=== PATIENT | male | born 1960 | race Caucasian/White ===

== ENCOUNTER 2020-08-17 09:44 | Outpatient (REF) | payer OTHER, SELFPAY | END 2020-08-17 09:45 | disposition home or self-care (01) | LOC: HO.MANLR 09:44 | PROVIDERS: PCP Internal Medicine; Visit Provider Internal Medicine | DX: Z20.822 Contact with and (suspected) exposure to COVID-19 (principal) | CPT/HCPCS: 36415; U0003 ==

== ENCOUNTER 2020-11-01 07:36 | Outpatient (REF) | payer OTHER, SELFPAY ==
[2020-11-01 11:13] LABS: MANUAL DIFF FLAG NO
[2020-11-01 11:19] LABS: Basophils Percent Auto 0.7 % (0-2); Eosinophils Absolute Auto 0.1 X10*3/uL (0.0-0.4); Eosinophils Percent Auto 2.4 % (0-4); Hematocrit 45.1 % (42-52); Hemoglobin 15.1 g/dl (14.0-18.0); Imm Gran Abs Auto 0.02 X10*3/uL (0.00-0.03); Imm Gran Pct Auto 0.4 % (0.0-0.4); Lymphocytes Absolute Auto 1.2 X10*3/uL (1.2-4.9); Lymphocytes Percent Auto 25.7 % (20-40); Mean Corpuscular HGB Conc 33.5 g/dl (31.0-36.0); Mean Corpuscular Hemoglobin 31.8 pg (27.0-33.0); Mean Corpuscular Volume 94.9 fL (80-98); Mean Platelet Volume 10.6 fL (9.4-12.4); Monocytes Absolute Auto 0.5 X10*3/uL (0.1-1.2); Monocytes Percent Auto 11.1 % (2-11); Neutrophils Absolute Auto 2.7 X10*3/uL (2.0-8.3); Neutrophils Percent Auto 59.7 % (45-73); Platelet Count 253 X10*3/uL (160-400); Red Blood Count 4.75 X10*6/uL (4.60-5.80); Red Cell Distribution Width 12.3 % (11.0-16.0); White Blood Count 4.5 X10*3/uL (4.8-10.8)
[2020-11-01 12:11] LABS: Folate 7.8 ng/mL (> or = 4.0); Vitamin B12 298 pg/mL (200-900)
[2020-11-01 12:33] LABS: Alanine Aminotransferase 39 U/L (0-40); Albumin Level 4.1 g/dL (3.5-5.0); Alkaline Phosphatase 96 U/L (39-117); Anion Gap 15 (12-20); Aspartate Amino Transferase 28 U/L (5-37); Bilirubin Total 0.7 mg/dL (0.0-1.0); Blood Urea Nitrogen 14 mg/dL (9-16); Carbon Dioxide 25 mmol/L (22-29); Chloride 104 mmol/L (96-108); Cholesterol 236 mg/dL; Estimated Glomerular Filt Rate > 60; Glucose Fasting 96 mg/dL (60-99); HDL Cholesterol 52 mg/dL; LDL Cholesterol Calculated 153 mg/dl; Potassium 4.1 mmol/L (3.3-5.1); Sodium 140 mmol/L (135-145); Total Protein 6.7 g/dL (6.5-8.0); Triglycerides 158 mg/dL
[2020-11-01 12:56] LABS: Prostate Specific Antigen 1.15 ng/mL (<0.05-4.0); Vitamin D 25-OH Total 20.7 ng/mL (>30)
[2020-11-05 14:52] LABS: Testosterone, Total 264 ng/dL (250-1100)
== END 2020-11-01 07:37 | disposition home or self-care (01) ==
LOC: HO.MANLDS 07:36
PROVIDERS: PCP Internal Medicine; Visit Provider Internal Medicine
DX: Z00.00 Encounter for general adult medical examination without abnormal findings (principal); Z12.5 Encounter for screening for malignant neoplasm of prostate; E55.9 Vitamin D deficiency, unspecified
CPT/HCPCS: 36415; 80053; 80061; 82306; 82607; 82746; 84153; 84403; 85025

== ENCOUNTER 2022-01-17 07:47 | Outpatient (REF) | payer OTHER, SELFPAY ==
[2022-01-17 11:10] LABS: MANUAL DIFF FLAG NO
[2022-01-17 11:14] LABS: Basophils Percent Auto 0.9 % (0-2); Eosinophils Absolute Auto 0.1 X10*3/uL (0.0-0.4); Eosinophils Percent Auto 2.2 % (0-4); Hematocrit 41.7 % (42.0-52.0); Imm Gran Abs Auto 0.01 X10*3/uL (0.00-0.03); Imm Gran Pct Auto 0.2 % (0.0-0.4); Lymphocytes Absolute Auto 1.5 X10*3/uL (1.2-4.9); Lymphocytes Percent Auto 32.5 % (20-40); Mean Corpuscular HGB Conc 33.6 g/dl (31.0-36.0); Mean Corpuscular Hemoglobin 31.3 pg (27.0-33.0); Mean Corpuscular Volume 93.3 fL (80.0-98.0); Mean Platelet Volume 10.1 fL (9.4-12.4); Monocytes Absolute Auto 0.4 X10*3/uL (0.1-1.2); Monocytes Percent Auto 9.4 % (2-11); Neutrophils Absolute Auto 2.4 x10*3/uL (2.0-8.3); Neutrophils Percent Auto 54.8 % (45-73); Platelet Count 274 X10*3/uL (160-400); Red Blood Count 4.47 X10*6/uL (4.60-5.80); Red Cell Distribution Width 13.2 % (11.0-16.0); White Blood Count 4.5 X10*3/uL (4.8-10.8)
[2022-01-17 11:39] LABS: Alanine Aminotransferase 30 U/L (0-40); Albumin Level 4.2 g/dL (3.5-5.0); Alkaline Phosphatase 78 U/L (39-117); Anion Gap 13 (12-20); Aspartate Amino Transferase 22 U/L (5-37); Bilirubin Total 0.6 mg/dL (0.0-1.0); Blood Urea Nitrogen 12 mg/dL (9-16); Calcium 9.3 mg/dL (8.4-10.2); Carbon Dioxide 25 mmol/L (22-29); Chloride 107 mmol/L (96-108); Cholesterol 182 mg/dL; Estimated Glomerular Filt Rate > 60; Glucose Random 101 mg/dL (60-115); HDL Cholesterol 56 mg/dL; LDL Cholesterol Calculated 88 mg/dl; Potassium 4.4 mmol/L (3.3-5.1); Sodium 141 mmol/L (135-145); Total Protein 6.8 g/dL (6.5-8.0); Triglycerides 190 mg/dL
[2022-01-17 11:49] LABS: Prostate Specific Antigen 1.29 ng/mL (<0.05-4.0); Vitamin D 25-OH Total 18.9 ng/mL (>30)
[2022-01-22 14:02] LABS: Testosterone, Total 405 ng/dL (250-1100)
== END 2022-01-17 07:48 | disposition home or self-care (01) ==
LOC: HO.MANLDS 07:47
PROVIDERS: Visit Provider Internal Medicine
DX: Z00.00 Encounter for general adult medical examination without abnormal findings (principal); Z12.5 Encounter for screening for malignant neoplasm of prostate
CPT/HCPCS: 36415; 80053; 80061; 82306; 84153; 84403; 85025

== ENCOUNTER 2022-04-25 09:21 | Outpatient (REF) | payer OTHER, SELFPAY ==
[2022-04-25 11:04] LABS: MANUAL DIFF FLAG NO
[2022-04-25 11:42] LABS: Basophils Percent Auto 0.8 % (0-2); Eosinophils Absolute Auto 0.1 X10*3/uL (0.0-0.4); Eosinophils Percent Auto 1.7 % (0-4); Hematocrit 40.3 % (42.0-52.0); Hemoglobin 13.9 g/dl (14.0-18.0); Imm Gran Abs Auto 0.01 X10*3/uL (0.00-0.03); Imm Gran Pct Auto 0.3 % (0.0-0.4); Lymphocytes Percent Auto 28.6 % (20-40); Mean Corpuscular HGB Conc 34.5 g/dl (31.0-36.0); Mean Corpuscular Hemoglobin 31.8 pg (27.0-33.0); Mean Corpuscular Volume 92.2 fL (80.0-98.0); Mean Platelet Volume 9.6 fL (9.4-12.4); Monocytes Absolute Auto 0.3 X10*3/uL (0.1-1.2); Monocytes Percent Auto 9.4 % (2-11); Neutrophils Absolute Auto 2.1 x10*3/uL (2.0-8.3); Neutrophils Percent Auto 59.2 % (45-73); Platelet Count 249 X10*3/uL (160-400); Red Blood Count 4.37 X10*6/uL (4.60-5.80); Red Cell Distribution Width 12.5 % (11.0-16.0); White Blood Count 3.6 X10*3/uL (4.8-10.8)
[2022-04-25 13:34] LABS: Albumin Level 4.1 g/dL (3.5-5.0); Aspartate Amino Transferase 23 U/L (5-37); Blood Urea Nitrogen 12 mg/dL (9-16); Estimated Glomerular Filt Rate > 60; Total Protein 6.5 g/dL (6.5-8.0)
[2022-04-25 14:34] LABS: Alanine Aminotransferase 26 U/L (0-40); Alkaline Phosphatase 70 U/L (39-117); Anion Gap 14 (12-20); Bilirubin Total 0.7 mg/dL (0.0-1.0); Calcium 9.2 mg/dL (8.4-10.2); Carbon Dioxide 24 mmol/L (22-29); Chloride 104 mmol/L (96-108); Cholesterol 160 mg/dL; Glucose Random 95 mg/dL (60-115); HDL Cholesterol 56 mg/dL; LDL Cholesterol Calculated 61 mg/dl; Sodium 138 mmol/L (135-145); Triglycerides 215 mg/dL
[2022-04-25 14:47] LABS: Prostate Specific Antigen 0.95 ng/mL (<0.05-4.0); Vitamin D 25-OH Total 25.3 ng/mL (>30)
[2022-04-30 17:12] LABS: Testosterone, Total 239 ng/dL (250-1100)
== END 2022-04-25 09:22 | disposition home or self-care (01) ==
LOC: HO.MANLDS 09:21
PROVIDERS: Visit Provider Internal Medicine
DX: Z00.00 Encounter for general adult medical examination without abnormal findings (principal); Z12.5 Encounter for screening for malignant neoplasm of prostate
CPT/HCPCS: 36415; 80053; 80061; 82306; 84153; 84403; 85025

== ENCOUNTER 2023-03-18 10:02 | Outpatient (REF) | payer OTHER, SELFPAY ==
[2023-03-18 13:49] LABS: MANUAL DIFF FLAG NO
[2023-03-18 14:05] LABS: Basophils Percent Auto 0.7 % (0-2); Eosinophils Absolute Auto 0.1 X10*3/uL (0.0-0.4); Eosinophils Percent Auto 1.5 % (0-4); Hematocrit 45.8 % (42.0-52.0); Hemoglobin 15.6 g/dl (14.0-18.0); Lymphocytes Absolute Auto 1.5 X10*3/uL (1.2-4.9); Lymphocytes Percent Auto 27.9 % (20-40); Mean Corpuscular HGB Conc 34.1 g/dl (31.0-36.0); Mean Corpuscular Hemoglobin 32.2 pg (27.0-33.0); Mean Corpuscular Volume 94.6 fL (80.0-98.0); Mean Platelet Volume 10.6 fL (9.4-12.4); Monocytes Absolute Auto 0.5 X10*3/uL (0.1-1.2); Monocytes Percent Auto 9.9 % (2-11); Neutrophils Absolute Auto 3.2 x10*3/uL (2.0-8.3); Platelet Count 312 X10*3/uL (160-400); Red Blood Count 4.84 X10*6/uL (4.60-5.80); Red Cell Distribution Width 12.6 % (11.0-16.0); White Blood Count 5.3 X10*3/uL (4.8-10.8)
[2023-03-18 14:47] LABS: Alanine Aminotransferase 21 U/L (0-40); Albumin Level 4.4 g/dL (3.5-5.0); Alkaline Phosphatase 76 U/L (39-117); Anion Gap 12 (12-20); Aspartate Amino Transferase 21 U/L (5-37); Bilirubin Total 1.2 mg/dL (0.0-1.0); Blood Urea Nitrogen 13 mg/dL (9-16); Calcium 9.8 mg/dL (8.4-10.2); Carbon Dioxide 29 mmol/L (22-29); Chloride 103 mmol/L (96-108); Cholesterol 157 mg/dL; Estimated Glomerular Filt Rate > 60; Glucose Random 93 mg/dL (60-115); HDL Cholesterol 51 mg/dL; LDL Cholesterol Calculated 82 mg/dl; Potassium 4.5 mmol/L (3.3-5.1); Sodium 139 mmol/L (135-145); Total Protein 7.2 g/dL (6.5-8.0); Triglycerides 120 mg/dL
[2023-03-18 15:19] LABS: Prostate Specific Antigen 2.66 ng/mL (<0.05-4.0)
[2023-03-22 01:14] LABS: Testosterone, Total 292 ng/dL (250-1100)
== END 2023-03-18 10:03 | disposition home or self-care (01) ==
LOC: HO.MANLDS 10:02
PROVIDERS: Visit Provider Internal Medicine
DX: Z12.5 Encounter for screening for malignant neoplasm of prostate (principal); E78.00 Pure hypercholesterolemia, unspecified; R79.89 Other specified abnormal findings of blood chemistry
CPT/HCPCS: 36415; 80053; 80061; 84153; 84403; 85025

== ENCOUNTER 2024-03-25 07:57 | Outpatient (REF) | payer BC, SELFPAY ==
[2024-03-25 13:25] LABS: MANUAL DIFF FLAG NO
[2024-03-25 13:42] LABS: Estimated Average Glucose 105 mg/dL; Hemoglobin A1c % 5.3 % (<6.0)
[2024-03-25 13:44] LABS: Basophils Percent Auto 0.6 % (0-2); Eosinophils Absolute Auto 0.1 X10*3/uL (0.0-0.4); Eosinophils Percent Auto 1.7 % (0-4); Hematocrit 41.9 % (42.0-52.0); Hemoglobin 14.3 g/dl (14.0-18.0); Imm Gran Abs Auto 0.01 X10*3/uL (0.00-0.03); Imm Gran Pct Auto 0.2 % (0.0-0.4); Lymphocytes Absolute Auto 1.4 X10*3/uL (1.2-4.9); Lymphocytes Percent Auto 27.2 % (20-40); Mean Corpuscular HGB Conc 34.1 g/dl (31.0-36.0); Mean Corpuscular Hemoglobin 32.9 pg (27.0-33.0); Mean Corpuscular Volume 96.3 fL (80.0-98.0); Mean Platelet Volume 10.3 fL (9.4-12.4); Monocytes Absolute Auto 0.5 X10*3/uL (0.1-1.2); Monocytes Percent Auto 9.4 % (2-11); Neutrophils Absolute Auto 3.2 x10*3/uL (2.0-8.3); Neutrophils Percent Auto 60.9 % (45-73); Platelet Count 285 X10*3/uL (160-400); Red Blood Count 4.35 X10*6/uL (4.60-5.80); Red Cell Distribution Width 12.7 % (11.0-16.0); White Blood Count 5.2 X10*3/uL (4.8-10.8)
[2024-03-25 14:03] LABS: Albumin Level 4.2 g/dL (3.5-5.0); Anion Gap 11 (12-20); Carbon Dioxide 26 mmol/L (22-29); Chloride 106 mmol/L (96-108); Cholesterol 167 mg/dL (<200); Glucose Random 92 mg/dL (60-115); Potassium 4.7 mmol/L (3.3-5.1); Sodium 138 mmol/L (135-145); Total Protein 6.6 g/dL (6.5-8.0); Triglycerides 64 mg/dL (<150)
[2024-03-25 14:09] LABS: Prostate Specific Antigen 1.25 ng/mL (<0.05-4.0)
[2024-03-25 14:11] LABS: Vitamin D 25-OH Total 45.6 ng/mL (>30)
[2024-03-25 14:21] LABS: Alanine Aminotransferase 23 U/L (0-40); Alkaline Phosphatase 58 U/L (39-117); Aspartate Amino Transferase 23 U/L (5-37); Bilirubin Total 1.1 mg/dL (0.0-1.0); Blood Urea Nitrogen 12 mg/dL (9-16); Estimated Glomerular Filt Rate > 60; HDL Cholesterol 64 mg/dL (>40); LDL Cholesterol Calculated 91 mg/dL (<100)
== END 2024-03-25 07:58 | disposition home or self-care (01) ==
LOC: HO.MANLDS 07:57
PROVIDERS: Visit Provider Internal Medicine
DX: Z00.00 Encounter for general adult medical examination without abnormal findings (principal); Z12.5 Encounter for screening for malignant neoplasm of prostate; Z13.6 Encounter for screening for cardiovascular disorders; Z13.1 Encounter for screening for diabetes mellitus
CPT/HCPCS: 36415; 80053; 80061; 82306; 83036; 84153; 85025

== ENCOUNTER 2025-03-24 08:01 | Outpatient (REF) | payer BC, SELFPAY ==
[2025-03-24 13:52] LABS: MANUAL DIFF FLAG NO
[2025-03-24 14:05] LABS: Hematocrit 39.8 % (42.0-52.0); Hemoglobin 13.6 g/dl (14.0-18.0); Imm Gran Abs Auto 0.01 X10*3/uL (0.00-0.03); Imm Gran Pct Auto 0.2 % (0.0-0.4); Lymphocytes Absolute Auto 1.7 X10*3/uL (1.2-4.9); Mean Corpuscular HGB Conc 34.2 g/dl (31.0-36.0); Mean Corpuscular Hemoglobin 32.4 pg (27.0-33.0); Mean Corpuscular Volume 94.8 fL (80.0-98.0); NRBC Abs Auto 0.000 X10*3/uL (0.0-0.012); NRBC Pct Auto 0.0 /100WBC (0.0-0.2); Platelet Count 258 X10*3/uL (160-400); Red Blood Count 4.20 X10*6/uL (4.60-5.80); White Blood Count 5.0 X10*3/uL (4.8-10.8)
[2025-03-24 14:22] LABS: Hemoglobin A1C 123.9748 umol/L; Total Hemoglobin (HGBA1C) 3632.4669 umol/L
[2025-03-24 14:47] LABS: Alanine Aminotransferase 30 U/L (0-40); Albumin Level 4.7 g/dL (3.5-5.0); Alkaline Phosphatase 77 U/L (39-117); Anion Gap 12 (12-20); Aspartate Amino Transferase 29 U/L (5-37); Blood Urea Nitrogen 15 mg/dL (9-16); Calcium 9.1 mg/dL (8.4-10.2); Carbon Dioxide 28 mmol/L (22-29); Chloride 106 mmol/L (96-108); Cholesterol 174 mg/dL (<200); Estimated Glomerular Filt Rate > 60; HDL Cholesterol 83 mg/dL (>40); Potassium 4.6 mmol/L (3.3-5.1); Sodium 141 mmol/L (135-145); Total Protein 6.8 g/dL (6.5-8.0); Triglycerides 62 mg/dL (<150)
[2025-03-24 14:50] LABS: Thyroid Stimulating Hormone 0.96 uIU/mL (0.32-4.0)
[2025-03-24 14:54] LABS: Prostate Specific Antigen 1.91 ng/mL (<0.05-4.0)
== END 2025-03-24 08:02 | disposition home or self-care (01) ==
LOC: HO.MANLDS 08:01
PROVIDERS: Visit Provider Internal Medicine
DX: Z12.5 Encounter for screening for malignant neoplasm of prostate (principal); Z13.1 Encounter for screening for diabetes mellitus; I10 Essential (primary) hypertension
CPT/HCPCS: 36415; 80053; 80061; 82306; 83036; 84153; 84443; 85025

== ENCOUNTER 2025-06-25 13:31 | Outpatient (REF) | payer BC, SELFPAY ==
[2025-06-25 18:20] LABS: MANUAL DIFF FLAG NO
[2025-06-25 18:35] LABS: Hematocrit 41.6 % (42.0-52.0); Hemoglobin 13.9 g/dl (14.0-18.0); Imm Gran Abs Auto 0.07 X10*3/uL (0.00-0.03); Imm Gran Pct Auto 0.9 % (0.0-0.4); Lymphocytes Absolute Auto 1.6 X10*3/uL (1.2-4.9); Mean Corpuscular HGB Conc 33.4 g/dl (31.0-36.0); Mean Corpuscular Hemoglobin 31.9 pg (27.0-33.0); Mean Corpuscular Volume 95.4 fL (80.0-98.0); NRBC Abs Auto 0.000 X10*3/uL (0.0-0.012); NRBC Pct Auto 0.0 /100WBC (0.0-0.2); Platelet Count 297 X10*3/uL (160-400); Red Blood Count 4.36 X10*6/uL (4.60-5.80); White Blood Count 8.0 X10*3/uL (4.8-10.8)
[2025-06-25 18:45] LABS: Iron 92 mcg/dL (45-160); Percent Iron Saturation 30 % (15-50); Total Iron Binding Capacity 308 mcg/dL (228-428); Unsaturated Iron Binding 216 ug/dL
[2025-06-25 19:04] LABS: Ferritin 168 ng/mL (20-250)
--- OUTSIDE RECORDS SUMMARY | 2025-06-25 19:57 | XMS_ITS | Data Portability ---
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 REVIEW OF PRIOR EXTERNAL NOTES/RESULTS, ORDERING OF TEST(S) CATEGORY 2. ASSESSMENT REQUIRING INDEPENDENT HISTORIAN(S) INCLUDE WHO THE HISTORIAN IS AND RELATION TO PT AND WHY PT IS UNABLE TO GIVE COMPLETE HISTORY ELEMENT 3: RISK (LOW) RISK OF COMPLICATIONS AND/OR MORBIDITY OR MORTALITY OF PATIENT MANAGEMENT PROVIDER MUST THOROUGHLY DOCUMENT ALL OF THE ELEMENTS COVERED Not available 12/16/2023 17:01:01 Plan of Treatment Reminders Order Date Submit Date Provider Last Modified By Organization Details Last Modified Time Details Appointments None recorded. Lab CBC 2024 025 [facility], [address] [place] [address], [place], [address], 5 15:53:36 iron + TIBC + ferritin, serum 2024 025 [facility], [address] [place] [address], [address], 5 15:53:37 CMP, serum or plasma 2023 024 [facility], [address] [place] [address], [address], 4 11:12:10 CBC w/ auto diff 2023 024 [facility], [address] [place] [address], [address], 4 11:28:19 PSA, serum or plasma 2023 024 [facility], [address] [place] [address], [address], 4 11:12:11 lipid panel, blood 2023 024 [facility], [address] [place] [address], [address], 4 11:12:10 vitamin D, 25-hydroxy , total, serum 2023 024 [facility], [address] [place] [address], [address], 4 11:12:11 HbA1c (hemoglobi n A1c), blood 2023 024 [facility], [address] [place] [address], [address], 4 11:12:11 testostero ne, total, serum 2022 023 [facility], [address] [place] [address], [address], 3 11:41:04 PSA, serum or plasma 2022 023 [facility], [address] [place] [address], [address], 3 11:17:58 lipid panel, blood 2022 023 [facility], [address] [place] [address], [address], 3 11:17:58 CMP, serum or plasma 2022 023 [facility], [address] [place] [address], [address], 3 11:17:57 CBC w/ auto diff 2022 023 [facility], [address] [place] [address], [address], 3 11:17:58 CMP, serum or plasma 2021 022 [facility], [address] [place] [address], [address], 2 12:35:49 lipid panel, blood 2021 022 [facility], [address] [place] [address], [address], 2 12:35:49 CBC w/ auto diff 2021 022 [facility], [address] [place] [address], [address], 2 12:35:50 PSA, serum or plasma 2021 022 [facility], [address] [place] [address], [address], 2 12:35:50 vitamin D, 25-hydroxy , total, serum 2021 022 [facility], [address] [place] [address], [address], 2 12:35:50 testostero ne, total, serum 2021 022 [facility], [address] [place] [address], [address], 12:54:04 Referral gastroente rologist referral 2021 022 [email or web address] Don Gastelum MD, [address] [facility], [place], [address], 14:22:53 Procedures None recorded. Surgeries None recorded. Imaging CT, heart, w/o contrast, w/ coronary calcium score 2021 022 [email or web address] 10 [facility], [address] [place], [address], 10:16:22 Medication Orders None recorded. Patient TargetsNo targets recorded. Patient InstructionsNo instructions recorded. 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 [facility] [address] [place] [address], [place], [address], 03/13/2023 15:54:25 Result Notes None recorded. Problems Name Problem SNOMED Code Status Onset Date Resolution Date Notes Provider Name and Address Organization Details Recorded Time Inflammat ion of joint of shoulder region 139579458 Active 2018 [facility] 9 08:19:27 Degenerat ion of lumbar intervert ebral disc 87005243 Active 2018 [facility] 9 08:19:41 Tear of meniscus of knee 633057124 Active 2018 [facility] 9 08:20:13 Bilateral rotator cuff tendiniti s 495336712453 28762 Active 2018 [facility] 08:20:39 Hyperchol esterolem ia 84714233 Active 2018 Guanakito Peña DO [address] [place] [address], [phone], [facility], [place] 9 14:21:23 Plantar fasciitis 559434382 Active 2018 Guanakito Peña DO [address] [place] [address], [address], [facility], [place] 9 14:23:11 Hypotesto steronism 962774482664 4 Active 2018 Guanakito Peña DO [address] [place] [address], [address], [facility] 9 21:43:16 Derangeme nt of meniscus of left knee joint 673520801169 04393 Active 2023 Guanakito Peña DO [address] [place] [address], [address], [facility], [place] 4 17:01:29 Herpes zoster dermatiti s 379664516 Active 2024 Guanakito Peña DO [address] [place] [address], [address], [facility], [place] 5 09:48:26 Notes:Some problems listed i n Documents: #[id number], #[id number], #[id number] could not be added to this patient's chart. Please review these documents and add these problems to the patient's chart manually as needed. Problem Notes None recorded. Procedures Surgical History Date Name Laterality Status Provider Name and Address Organization Details Recorded Time 024 Corticosteroid Injection completed Guanakito Peña DO [address] [place] [address], [phone], [facility], [place] 12/16/2023 17:00:40 023 Colonoscopy completed Salvador Peña [facility] 04/17/2023 16:17:13 Imaging Results None recorded. Procedure Notes None recorded. Medical Equipment None Reported. Allergies Allergen ID Allergen Name Allergen Category Reaction Reaction Severity Criticality Documentation Date Start Date Code Code System Note Provider Name and Address Organization Details Recorded Time 2932 Product containin g penicilli n (product) medicatio n Not available Not available Not available 11/03/2018 91020 8001 SNOMED Leia Upnoé pryor [place] [facility] 9 14:09:19 Medications Name Sig Start Date Stop Date Status Note LastModified by Organization Details LastModified Time atorvastati n 40 mg tablet TAKE 1 TABLET BY MOUTH EVERY DAY 2024 active Not Available Not Available Not Avai lable prednisone 10 mg tablet Take 1 tablet every day by oral route. 09/30 completed Not Available Not Available Not Available trazodone 50 mg tablet Take 1 tablet every day by oral route at bedtime for 30 days. 11/03 completed Not Available Not Available Not Available azithromyci n 250 mg tablet TAKE 2 TABLETS (500 MG) BY ORAL ROUTE ONCE DAILY FOR 1 DAY THEN 1 TABLET (250 MG) BY ORAL ROUTE ONCE DAILY FOR 4 DAYS 09/30 completed Not Available Not Available Not Available benzonatate 200 mg capsule TAKE 1 CAPSULE BY MOUTH THREE TIMES DAILY FOR 14 DAYS NEEDED 10/26 completed Not Available Not Available Not Available valacyclovi r 1 gram tablet TAKE 1 TABLET BY MOUTH EVERY 12 HOURS FOR 7 DAYS 03/30 completed Not Available Not Available Not Available moxifloxaci n 400 mg tablet TAKE 1 TABLET BY MOUTH EVERY DAY FOR 10 DAYS 03/13 completed Not Available Not Available Not Available peg-electro lyte solution 420 gram oral solution MIX POWDER WITH WATER ACCORDING TO LABEL DRINK 8 OZ EVERY 15 TO 20 MINUTES THE EVENING BEFORE COLONOSCO PY UNTIL FINISHED 03/24 completed Not Available Not Available Not Available clonidine HCl 0.2 mg tablet 11/03 completed Not Available Not Available Not Available lisinopril 10 mg tablet Take 1 tablet every day by oral route for 30 days. 05/28 completed Not Available Not Available Not Available omeprazole 20 mg capsule,del ayed release Take 1 capsule every day by oral route. active Not Available Not Available No t Available codeine 10 mg-guaifene sin 100 mg/5 mL oral liquid TAKE 10 ML BY MOUTH EVERY 4 HOURS FOR 7 DAYS 01/15 completed Not Available Not Available Not Available lisinopril 5 mg tablet TAKE 1 TABLET BY MOUTH EVERY DAY 05/28 completed Not Available Not Available Not Available lisinopril 40 mg tablet TAKE 1 TABLET BY MOUTH EVERY DAY 2024 active Not Available Not Available Not Avai lable doxycycline hyclate 100 mg tablet TAKE 1 TABLET BY MOUTH TWICE DAILY FOR 10 DAYS 01/15 completed Not Available Not Available Not Available testosteron e 1 % (50 mg/5 gram) transdermal gel packet Apply 1 packet every day by transderm al route. 09/30 completed Not Available Not Available Not Available Vitals Date Recorded Body height Body mass index (BMI) Body weight Heart rate Oxygen saturation Oxygen saturation in Arterial blood by Pulse oximetry Systolic And Diastolic Provider Name and Address Organization Details Last Updated DateTime 2 180.98 cm 33.6 kg/m2 081564. 43 g 92 /min 98 % 98 % 138/80 mm[Hg] Guanakito Peña, DO [address] [place], [address] [place] [address] Internal Medicine 2 16:02:18 Date Recorded Body height Body mass index (BMI) Body weight Heart rate Oxygen saturation Oxygen saturation in Arterial blood by Pulse oximetry Systolic And Diastolic Provider Name and Address Organization Details Last Updated DateTime 3 180.34 cm 32.8 kg/m2 527882. 21 g 92 /min 98 % 98 % 140/76 mm[Hg] Kelly Arias [facility] 3 15:30:39 Date Recorded Body height Body mass index (BMI) Body weight Heart rate Oxygen saturation Oxygen saturation in Arterial blood by Pulse oximetry Systolic And Diastolic Provider Name and Address Organization Details Last Updated DateTime 4 180.34 cm 29.7 kg/m2 85655.1 7 g 85 /min 97 % 97 % 118/82 mm[Hg] Ben Anguiano [facility] 4 11:06:08 Date Recorded Body weight Heart rate Oxygen saturation Oxygen saturation in Arterial blood by Pulse oximetry Systolic And Diastolic Provider Name and Address Organization Details Last Updated DateTime 5 06671.4 1 g 60 /min 98 % 98 % 106/64 mm[Hg] Roslyn Sanon [facility] 15:13:31 Social History Question Answer Notes LastModified by Organizat [employer] Details LastModified Time Tobacco Smoking Status Never Smoker Ben pryor [facility] 03/24/2024 11:04:31 What Was The Date Of Your Most Recent Tobacco Screening? 03/30/2025 [email or web address] Information not available 03/30/2025 Sex: Unknown Functional Status Question Answer Note LastModified by Organizat ion Details LastModified Time Do you or have you ever used any other forms of tobacco or nicotine? Yes Information not available 01/15/2022 Do you or have you ever used smokeless tobacco? Former smokeless tobacco user [email or web address] Information not available 03/24/2024 Do you or have you ever used e-cigarettes or vape? Never used electronic cigarettes Information not available 01/15/2022 Mental Status None recorded. Family History Nothing Reported. Medical History No medical history recorded. Past Encounters Encounter ID Performer Location Encounter Start Date Encounter Closed Date Diagnosis/Indication Diagnosis SNOMED-CT Code Diagnosis ICD10 Code Diagnosis IMO Codes Diagnosis Note [id number] Guanakito Peña [facility] [address] [facility],[place] [address] 11/03/2018 14:03:30 11/03/2018 15:07:28 Active or passive immunization 077862107 Z23 will go get tdap Hypercholesterolemia 136 76928 E78.00 will need to have fbw has been 6 mo Adult heal th examination 237311220 Z00.00 doing ok but will be needing a colonoscop y Plantar fasciitis 20280313 003 M72.2 will be seeing a director search marketing strategies [id number] Guanakito Peña [facility] [address] [facility],[place] [address] 09/30/2020 15:39:16 09/30/2020 16:46:11 Adult health examination 315951524 Z00.00 doing ok but will be needing a colonoscop y he is going to need some FBW Vitamin D deficiency 347 43910 E55.9 will need to rechk lab Fatigue 42184970 R53.83 will need lab done [id number] Guanakito Peña [facility] [address] [facility] [address] [address] 01/15/2022 15:52:39 01/15/2022 16:30:41 Active or passive immunization 266964547 Z23 will go get tdap Adult heal th examination 431370558 Z00.00 doing ok but will be needing a colonoscop y he is going to need some FBW Screening for malignant neoplasm of colon 215055398 Z12.11 [id number] Guanakito Peña [facility] [address] [facility] [address] [address] 03/13/2023 15:21:56 03/13/2023 16:01:46 Active or passive immunization 222433571 Z23 will go get tdap Adult heal th examination 290873766 Z00.00 doing ok but will be needing a colonoscop y he is going to need some FBW Hypercholesterolemia 136 78096 E78.00 will need to have fbw has been 6 mo Hypotestosteronism 88504 11540 104 R79.89 will need lab [id number] Guanakito Peña [facility] [address] [facility],[place] [address] 12/16/2023 16:27:13 12/17/2023 07:53:39 Derangement of meniscus of left knee joint 9664049638 0155163 M23.307 [place] [id number] Guanakito Peña [facility] [address] [facility],[place] [address] 03/24/2024 10:53:13 03/24/2024 14:45:30 Active or passive immunization 177480970 Z23 will go get tdap Adult heal th examination 512880276 Z00.00 doing great and is walking daily and keeping very active \has dropped signif wgt and built up muscle mass he is going to need some FBW Depression screening 171 404216 Z13.31 neg [id number] Guanakito Peña [facility] [address] [facility] [address] [place] [address] 03/30/2025 14:55:37 03/30/2025 16:44:41 Active or passive immunization 809960119 Z23 will go get tdap Depression screening 171 621975 Z13.31 neg Well adult 971175360 Z00 .00 04002468 doing great and is walking daily and keeping very active \has dropped signif wgt and built up muscle massdoing well and his lab is great has a hgb of 13.6 we will rechk in 1 mo Health Concerns Section Related Observation LastModified by Organization Detai ls LastModified Time None Recorded Concern Status LastModified by Organization Details LastModified Time None Recorded Advance Directives Directive None Recorded Payers Insurance Date Sequence Insurance Name Policy Number Policy Hutchinson Covered Member ID Hutchinson Member ID Guarantor Name 03/30/2025 1 ESTRELLA (PPO) [id number] Nani Casey [id number] 1 Sami Peña 03/30/2025 1 [facility] [id number] Sami Peña [id number] Sami Peña Notes Date Note Type Note Provider Name a nd Address Organization Details Recorded Time 2 text/html Annual WellnessReported by PatientSocial/Behavio ral HistoryFor diet and nutrition, patient reportshealthy diet. For fracture risk, patient reportsno history of fractures,no recent explained fracture,no sudden unexplained fractures, andno previous musculoskeletal injuries. For physical activity, patient reportsexercises on a regular basis,recent increase in physical activity, andgood physical condition. For additional lifestyle factors, patient reportsno tobacco use,no alcohol intake, andstopped drinking alcohol.Mental Status:For depression risk, patient reportsnever feels sad, empty, or tearful,no loss of interest in activities,no significant changes in weight,no sleep disturbances or insomnia,no agitation,no loss of energy,no feelings of worthlessness or guilt,no thoughts of suicide,no history of depression, andno history of mood disorders.Functional AbilityFor hearing, patient reportsno loss of hearing. For vision, patient reportsno vision problems.ROS as noted in the HPI Guanakito Peña, DO [address] [facility], [place], [address], [facility] 01/15/2022 16:22:06 3 text/html Annual WellnessReported by PatientSocial/Behavio ral HistoryFor diet and nutrition, patient reportshealthy diet. For fracture risk, patient reportsno history of fractures,no recent explained fracture,no sudden unexplained fractures, andno previous musculoskeletal injuries. For physical activity, patient reportsexercises on a regular basis,recent increase in physical activity, andgood physical condition. For additional lifestyle factors, patient reportsno tobacco use,no alcohol intake, andstopped drinking alcohol.Mental Status:For depression risk, patient reportsnever feels sad, empty, or tearful,no loss of interest in activities,no significant changes in weight,no sleep disturbances or insomnia,no agitation,no loss of energy,no feelings of worthlessness or guilt,no thoughts of suicide,no history of depression, andno history of mood disorders.Functional AbilityFor hearing, patient reportsno loss of hearing. For vision, patient reportsno vision problems.ROS as noted in the HPI Guanakito Peña DO [address] [place] [address], [address], [facility], [place] 03/13/2023 15:59:36 4 text/html ROS as noted in the HPI HAVING A GREAT DEAL OF MEDIAL PAINstates ongoing to many months since before last falllstates otc not helping Guanakito Peña DO [address] [place] [address], [address], [facility], [place] 12/16/2023 17:02:07 4 text/html Annual WellnessReported by PatientSocial/Behavio ral HistoryFor diet and nutrition, patient reportshealthy diet. For fracture risk, patient reportsno history of fractures,no recent explained fracture,no sudden unexplained fractures, andno previous musculoskeletal injuries. For physical activity, patient reportsexercises on a regular basis,recent increase in physical activity, andgood physical condition. For additional lifestyle factors, patient reportsno tobacco use,no alcohol intake, andstopped drinking alcohol.Mental Status:For depression risk, patient reportsnever feels sad, empty, or tearful,no loss of interest in activities,no significant changes in weight,no sleep disturbances or insomnia,no agitation,no loss of energy,no feelings of worthlessness or guilt,no thoughts of suicide,no history of depression, andno history of mood disorders.Functional AbilityFor hearing, patient reportsno loss of hearing. For vision, patient reportsno vision problems.ROS as noted in the HPI walks daily (ex today walked 7 miles) Guanakito Peña DO [address] [facility], [place], [address], [facility], [place] 03/24/2024 11:27:56 5 text/html Annual WellnessReported by PatientSocial/Behavio ral HistoryFor diet and nutrition, patient reportshealthy diet. For fracture risk, patient reportsno history of fractures,no recent explained fracture,no sudden unexplained fractures, andno previous musculoskeletal injuries. For physical activity, patient reportsexercises on a regular basis,recent increase in physical activity, andgood physical condition. For additional lifestyle factors, patient reportsno tobacco use,no alcohol intake, andstopped drinking alcohol.Mental Status:For depression risk, patient reportsnever feels sad, empty, or tearful,no loss of interest in activities,no significant changes in weight,no sleep disturbances or insomnia,no agitation,no loss of energy,no feelings of worthlessness or guilt,no thoughts of suicide,no history of depression, andno history of mood disorders.Functional AbilityFor hearing, patient reportsno loss of hearing. For vision, patient reportsno vision problems. Guanakito Peña, [address] [facility], [place], [address], [facility], [place] 03/30/2025 15:50:57
--- OUTSIDE RECORDS SUMMARY | 2025-06-25 19:57 | XMS_ITS | Patient Health Record ---
Author Organization [facility] Address [address] [place] [address] Care Team Providers Care Cotton Sampler Name Role Phone Guanakito Peña MD Primary Care Provider Moises Stallings Unavailable [phone] Allergies Allergen (clinical drug ingredient) Drug/Non Drug Allergy documented on EMR Reaction Allergy Type Onset Date Status amoxicillin Amoxicillin Unknown Drug Allergy Act ness Reason For Referral No Information Medications Medication SIG (Take, Route, Frequency, Duration) Notes Start Date End Date Status PriLOSEC Active Night Splint AFO - L1930 as directed Active Atorvastatin Calcium 40 MG 1 tablet Oral ly Once a day; Duration: 30 day(s) Active Physical Therapy . . . 2-3x/week; Durat ion: 3-4 weeks Active Testosterone 5 mg Once a day A ctive Social History Tobacco Use: Social History Observation Description Date Details (start date - stop date) Never Smoker NA - NA Tobacco Use/Smoking Question Answer Notes Are you a: nonsmoker Additional Findings: Tobacco Non-User Current no n-smoker Alcohol Screen Question Answer Notes Did you have a drink containing alcohol in the p ast year? Yes Points 0 Interpretation Negative Tobacco use other than smoking: Question Answer Notes Are you an other tobacco user? No Plan Of Treatment Pending Test Test Name Order Date X ray : Foot, right 3V 11/05/2018 Insurance Providers Payer Name Payer Address Payer Phone Subscriber Number Group Number Insured Name Patient Relationship to Insured Coverage Start Date Coverage End Date [facility] [address] [place] [address] [id number] Nani Peña Spouse - patient is the spouse of the insured Medical (General) History Medical History History ICD Code Back,Hip,and Knee pain CAD (Cholesterol) Chicken pox Surgical History Surgery Date(Month/Year)
== END 2025-06-25 13:32 | disposition home or self-care (01) ==
LOC: HO.MANLDS 13:31
PROVIDERS: Visit Provider Internal Medicine
DX: Z00.00 Encounter for general adult medical examination without abnormal findings (principal)
CPT/HCPCS: 36415; 82728; 83540; 85025